=== PATIENT | male | born 1985 | race African-American/Black ===

== ENCOUNTER 2020-11-20 21:17 | Observation (INO) ==
[2020-11-21 00:47] LABS: Basophils % 0.5 % (0.0-0.8); Eosinophils # 0.1 10*3/uL (0.0-0.87); Eosinophils % 1.1 % (0.00-10.9); Hematocrit 44.2 VOL% (42.0-52.0); Immature Granulocytes % 0.4 %; Immature Granulocytes Absolute 0.03 #; Lymphocytes # 1.6 10*3/uL (1.4-4.0); Mean Corpuscular HGB Conc 33.9 GM/DL (32-36); Mean Corpuscular Volume 90.4 FL (87-102); Mean Platelet Volume 9.1 FL (9.6-12.0); Monocytes % 4.6 % (1.7-12.7); Neutrophils % 73.4 % (38.7-73.9); Platelet Count 326 T/CUMM (130-400); Red Blood Count 4.89 MC/CUMM (3.8-5.5); Red Cell Distribution Width 12.1 % (9.3-17.3); White Blood Count 8.1 T/CUMM (4-12)
[2020-11-21] MEDS ORDERED: HYDROmorphone 2 MG/1 ML VIAL IV STA (00:51)
[2020-11-21] MEDS ORDERED: ONDANSETRON 4 MG/2 ML VIAL IV ONE (00:51)
[2020-11-21 01:11] LABS: Albumin 3.9 G/DL (3.4-5.0); Bilirubin,Total 0.9 MG/DL (0.2-1.0); Calcium 9.2 MG/DL (8.5-10.1); Osmolality,Calculated 275.5 MOS/KG (273-304); Potassium 4.7 MMOL/L (3.5-5.1); Total Protein 7.5 G/DL (6.4-8.3)
[2020-11-21] MEDS ORDERED: ACETAMINOPHEN 325 MG TABLET PO PRN (02:06)
[2020-11-21] MEDS ORDERED: HYDROmorphone 2 MG/1 ML VIAL IV PRN (02:06)
[2020-11-21] MEDS ORDERED: ONDANSETRON 4 MG/2 ML VIAL IV PRN (02:06)
[2020-11-21] MEDS: LACTATED RINGERS 1,000 ML IV SCH ×2 (05:04→13:27)
[2020-11-21 05:56] LABS: Basophils % 0.6 % (0.0-0.8); Eosinophils # 0.1 10*3/uL (0.0-0.87); Hematocrit 43.1 VOL% (42.0-52.0); Hemoglobin 14.8 GM/DL (14.0-18.0); Immature Granulocytes % 0.2 %; Immature Granulocytes Absolute 0.01 #; Lymphocytes # 2.3 10*3/uL (1.4-4.0); Lymphocytes % 34.4 % (21.2-54.2); Mean Corpuscular HGB Conc 34.3 GM/DL (32-36); Mean Corpuscular Volume 91.7 FL (87-102); Mean Platelet Volume 8.9 FL (9.6-12.0); Monocytes % 7.8 % (1.7-12.7); Platelet Count 314 T/CUMM (130-400); Red Cell Distribution Width 12.1 % (9.3-17.3); White Blood Count 6.7 T/CUMM (4-12)
[2020-11-21 06:14] LABS: Calcium 9.2 MG/DL (8.5-10.1); Osmolality,Calculated 275.5 MOS/KG (273-304); Potassium 4.9 MMOL/L (3.5-5.1)
[2020-11-21] MEDS ORDERED: ceFAZolin 1,000 MG in SYRINGE 1 EACH IV ONE (08:58)
[2020-11-21] MEDS ORDERED: BUPIVACAINE MPF 0.25% 30 ML VIAL ONE (10:39)
[2020-11-21] MEDS ORDERED: LIDOCAINE 1%/EPI INJ 20 ML VIAL ONE (10:40)
[2020-11-21] MEDS ORDERED: MIDAZOLAM 2 MG/2 ML VIAL ONE (10:50)
[2020-11-21] MEDS ORDERED: fentaNYL 250 MCG/5 ML VIAL ONE (10:50)
[2020-11-21] MEDS ORDERED: ceFAZolin 1,000 MG VIAL ONE (11:12)
[2020-11-21] MEDS ORDERED: ROCURONIUM 50 MG/5 ML VIAL IV ONE (11:27)
[2020-11-21] MEDS ORDERED: ONDANSETRON 4 MG/2 ML VIAL ONE (11:27)
[2020-11-21] MEDS ORDERED: SEVOFLURANE 1 UNIT/15 MINUTE INH ONE ×6 (11:27→12:08)
[2020-11-21] MEDS ORDERED: SUCCINYLCHOLINE 200 MG/10 ML VIAL ONE (11:27)
[2020-11-21] MEDS ORDERED: propofoL 200 MG/20 ML VIAL IV ONE (11:27)
[2020-11-21] MEDS ORDERED: LIDOCAINE 2% 5 ML VIAL ONE (11:27)
[2020-11-21] MEDS ORDERED: LACTATED RINGERS 1,000 ML IV ONE (11:27)
[2020-11-21] MEDS ORDERED: ACETAMINOPHEN 1,000 MG/100 ML VIAL IV ONE (11:28)
[2020-11-21] MEDS ORDERED: TISSUE ADHESIVE 1 EACH APPLICATOR TOP ONE (12:01)
[2020-11-21] MEDS ORDERED: GLYCOPYRROLATE 0.4 MG/2 ML VIAL ONE (12:07)
[2020-11-21] MEDS ORDERED: NEOSTIGMINE 10 MG/10 ML VIAL ONE (12:07)
[2020-11-21] MEDS: PANTOPRAZOLE 40 MG TABLET PO SCH (13:27)
[2020-11-21] MEDS ORDERED: DOXYCYCLINE HYCLATE 100 MG CAPSULE PO SCH (21:00)
[2020-11-21] MEDS ORDERED: LORazepam 2 MG/1 ML VIAL IV ONE (22:52)
[2020-11-22] MEDS: LACTATED RINGERS 1,000 ML IV SCH ×2 (04:44)
[2020-11-22 08:06] VITALS: BP 143/90
[2020-11-22] MEDS: PANTOPRAZOLE 40 MG TABLET PO SCH (08:36)
[2020-11-22] MEDS ORDERED: NICOTINE 21 MG/24 HR PATCH TRANSDERM SCH (09:00)
[2020-11-22] MEDS ORDERED: DOXYCYCLINE HYCLATE 100 MG CAPSULE PO SCH (10:30)
== END 2020-11-22 16:04 | disposition home or self-care (01) ==
LOC: N.ED 21:17 → N.EDINP 21:17 → N.4E 11-21 05:03
PROVIDERS: ADMIT Surgery; ATTEND Surgery

== ENCOUNTER 2020-12-19 19:30 | Observation (INO) ==
[2020-12-19] MEDS ORDERED: SODIUM CHLORIDE 0.9% 1,000 ML IV STA (20:19)
[2020-12-19] MEDS ORDERED: MORPHINE 4 MG/1 ML VIAL IV ONE (20:19)
[2020-12-19] MEDS ORDERED: ONDANSETRON 4 MG/2 ML VIAL IV STA (20:19)
[2020-12-19 20:55] LABS: Basophils % 0.6 % (0.0-0.8); Eosinophils # 0.2 10*3/uL (0.0-0.87); Eosinophils % 4.5 % (0.00-10.9); Hematocrit 43.3 VOL% (42.0-52.0); Hemoglobin 14.4 GM/DL (14.0-18.0); Immature Granulocytes % 0.2 %; Immature Granulocytes Absolute 0.01 #; Lymphocytes % 37.7 % (21.2-54.2); Mean Corpuscular HGB Conc 33.3 GM/DL (32-36); Mean Corpuscular Volume 91.4 FL (87-102); Monocytes % 6.3 % (1.7-12.7); Neutrophils % 50.7 % (38.7-73.9); Platelet Count 345 T/CUMM (130-400); Red Blood Count 4.74 MC/CUMM (3.8-5.5); Red Cell Distribution Width 11.8 % (9.3-17.3); White Blood Count 5.4 T/CUMM (4-12)
[2020-12-19 21:18] LABS: Albumin 3.7 G/DL (3.4-5.0); Bilirubin,Total 0.8 MG/DL (0.2-1.0); Calcium 9.1 MG/DL (8.5-10.1); Osmolality,Calculated 278.5 MOS/KG (273-304); Potassium 3.8 MMOL/L (3.5-5.1); Total Protein 7.2 G/DL (6.4-8.2)
[2020-12-19 22:22] LABS: Bilirubin,Urine Negative (Negative); Blood, Urine Negative (Negative); Calcium Oxalate Crystals,Urine Occasional /HPF (Few); Glucose,Urine (UA) Negative (Negative); Hyaline Casts,Urine 3 /LPF (0-3); Ketones,Urine Negative (Negative); Mucus,Urine Many /LPF (Occasional); Nitrite,Urine Negative (Negative); Protein,Urine 30 MG/DL; RBC,Urine 3 /HPF (0-4); Squamous Epithelial Cell,Urine Occasional /HPF (0-10); Urine Appearance Slightly Hazy (Clear); Urine Color Yellow (Yellow); WBC,Urine 84 /HPF (0-6)
[2020-12-20] MEDS ORDERED: ACETAMINOPHEN 325 MG TABLET PO PRN (03:02)
[2020-12-20] MEDS ORDERED: ONDANSETRON 4 MG/2 ML VIAL IV PRN (03:02)
[2020-12-20] MEDS ORDERED: HYDROmorphone 2 MG/1 ML VIAL IV PRN (03:02)
[2020-12-20] MEDS: SODIUM CHLORIDE 0.45% 1,000 ML IV SCH ×3 (03:33→19:46)
[2020-12-20] MEDS: PIPERACILLIN/TAZOBACTAM 3,375 MG in SODIUM CHLORIDE 0.9% 100 ML IV SCH ×2 (03:33→12:10)
[2020-12-20] MEDS ORDERED: KETOROLAC 30 MG/1 ML VIAL IV ONE (07:41)
[2020-12-20] MEDS: PANTOPRAZOLE 40 MG TABLET PO SCH (09:07)
[2020-12-20] MEDS: KETOROLAC 15 MG/1 ML VIAL IV SCH ×2 (12:10→18:08)
[2020-12-20] MEDS: LEVOFLOXACIN 500 MG TABLET PO SCH (14:41)
[2020-12-21] MEDS: KETOROLAC 15 MG/1 ML VIAL IV SCH ×2 (01:15→05:24)
[2020-12-21] MEDS: SODIUM CHLORIDE 0.45% 1,000 ML IV SCH (05:20)
[2020-12-21 08:03] VITALS: BP 125/82
[2020-12-21] MEDS: PANTOPRAZOLE 40 MG TABLET PO SCH (08:43)
[2020-12-21] MEDS: LEVOFLOXACIN 500 MG TABLET PO SCH (08:43)
== END 2020-12-21 11:20 | disposition home or self-care (01) ==
LOC: N.ED 19:30 → N.EDINP 19:30 → N.3E 12-20 03:01
PROVIDERS: ADMIT Surgery; ATTEND Surgery

== ENCOUNTER 2021-04-03 13:29 | Observation (INO) ==
[2021-04-03 16:25] LABS: Basophils % 0.6 % (0.0-0.8); Eosinophils # 0.3 10*3/uL (0.0-0.87); Eosinophils % 5.2 % (0.00-10.9); Hematocrit 43.8 VOL% (42.0-52.0); Hemoglobin 14.4 GM/DL (14.0-18.0); Immature Granulocytes % 0.2 %; Immature Granulocytes Absolute 0.01 #; Lymphocytes % 36.1 % (21.2-54.2); Mean Corpuscular HGB Conc 32.9 GM/DL (32-36); Mean Platelet Volume 9.4 FL (9.6-12.0); Monocytes % 11.8 % (1.7-12.7); Neutrophils % 46.1 % (38.7-73.9); Platelet Count 295 T/CUMM (130-400); Red Blood Count 4.71 MC/CUMM (3.8-5.5); Red Cell Distribution Width 12.1 % (9.3-17.3); White Blood Count 5.4 T/CUMM (4-12)
[2021-04-03 16:50] LABS: Albumin 3.6 G/DL (3.4-5.0); Bilirubin,Total 0.9 MG/DL (0.20-1.00); Calcium 9.7 MG/DL (8.5-10.1); Potassium 3.7 MMOL/L (3.5-5.1); Total Protein 7.2 G/DL (6.4-8.2)
[2021-04-03] MEDS ORDERED: HYDROmorphone 2 MG/1 ML VIAL IV STA (16:52)
[2021-04-03] MEDS ORDERED: ONDANSETRON 4 MG/2 ML VIAL IV STA ×2 (16:52→17:31)
[2021-04-03] MEDS ORDERED: ONDANSETRON 4 MG/2 ML VIAL IV PRN (19:50)
[2021-04-03] MEDS ORDERED: ACETAMINOPHEN 325 MG TABLET PO PRN (19:50)
[2021-04-04 05:20] LABS: Basophils % 0.6 % (0.0-0.8); Eosinophils # 0.3 10*3/uL (0.0-0.87); Eosinophils % 6.8 % (0.00-10.9); Hematocrit 42.7 VOL% (42.0-52.0); Hemoglobin 14.2 GM/DL (14.0-18.0); Immature Granulocytes % 0.2 %; Immature Granulocytes Absolute 0.01 #; Lymphocytes # 1.9 10*3/uL (1.4-4.0); Lymphocytes % 40.7 % (21.2-54.2); Mean Corpuscular HGB Conc 33.3 GM/DL (32-36); Mean Corpuscular Volume 91.4 FL (87-102); Mean Platelet Volume 9.6 FL (9.6-12.0); Monocytes % 13.1 % (1.7-12.7); Neutrophils % 38.6 % (38.7-73.9); Platelet Count 277 T/CUMM (130-400); Red Blood Count 4.67 MC/CUMM (3.8-5.5); Red Cell Distribution Width 12.2 % (9.3-17.3); White Blood Count 4.7 T/CUMM (4-12)
[2021-04-04 05:39] LABS: Calcium 9.5 MG/DL (8.5-10.1); Osmolality,Calculated 275.5 MOS/KG (273-304); Potassium 4.3 MMOL/L (3.5-5.1)
[2021-04-04 05:58] LABS: Anisocytosis Slight; Band Neutrophils 1 % (0-10); Eosinophils 7 % (0-10); Lymphocytes 44 % (20-55); Macrocytosis Slight; Platelet Estimate Normal; Segmented Neutrophils 35 % (50-85); Total Cells Counted 100
[2021-04-04] MEDS: PANTOPRAZOLE 40 MG TABLET PO SCH (08:47)
[2021-04-04] MEDS ORDERED: KETOROLAC 30 MG/1 ML VIAL IV PRN (10:42)
[2021-04-04 14:45] LABS: Bilirubin,Urine Negative (Negative); Blood, Urine Small mg/dL (Negative); Glucose,Urine (UA) Negative (Negative); Ketones,Urine Negative (Negative); Mucus,Urine Few /LPF (Occasional); Nitrite,Urine Negative (Negative); Protein,Urine Negative; RBC,Urine 1 /HPF (0-4); Squamous Epithelial Cell,Urine Occasional /HPF (0-10); Urine Appearance CLEAR (Clear); Urine Color Yellow (Yellow); Urine Specific Gravity 1.013 (1.001-1.035); Urine Urobilinogen < 2.0 EU/DL (0.2-1.0)
[2021-04-04] MEDS: CIPROFLOXACIN 500 MG TABLET PO SCH (17:44)
[2021-04-04] MEDS ORDERED: TAMSULOSIN 0.4 MG CAPSULE PO SCH (21:00)
[2021-04-05 07:53] VITALS: BP 134/85
[2021-04-05] MEDS: PANTOPRAZOLE 40 MG TABLET PO SCH (09:38)
[2021-04-05] MEDS: CIPROFLOXACIN 500 MG TABLET PO SCH (09:38)
== END 2021-04-05 11:44 | disposition home or self-care (01) ==
LOC: N.ED 13:29 → N.EDINP 13:29 → N.3E 21:33
PROVIDERS: ADMIT Surgery; ATTEND Surgery